=== PATIENT | female | born 1960 | race Caucasian/White ===

== ENCOUNTER → 2019-01-15 12:58 | Outpatient (CLI) | payer OTHER, SELFPAY ==
--- NOTE | 2019-01-15 12:59 | DI.RAD.S_ITS ---
PROCEDURE: XR CERVICAL SPINE 4V OR 5V INDICATIONS: Cervical spondylosis TECHNIQUE: 5 views of the cervical spine acquired. COMPARISON: None. FINDINGS: Bones: No fractures or dislocations to the T1 level. Mild disc height loss and degenerative endplate spurring at C5-6 level, and to a lesser extent at C6-7. Oblique images demonstrate mild bony foraminal narrowing due to uncovertebral joint hypertrophy and facet arthropathy on the left at C5-6 level. Soft tissues: No prevertebral soft tissue swelling. IMPRESSION: Degenerative endplate changes causing bony foraminal narrowing at the C5-6 level. Dictated by: Ruth Mcmillan M.D. on 01/15/2019 at 15:08 Approved by: Ruth Mcmillan M.D. on 01/15/2019 at 15:11
--- NOTE | 2019-01-15 12:59 | DI.RAD.S_ITS ---
PROCEDURE: XR SHOULDER RT MIN 2V INDICATIONS: Shoulder DJD TECHNIQUE: 3 views of the shoulder were acquired. COMPARISON: None. FINDINGS: Bones: No fractures or dislocations. No suspicious bony lesions. Mild degenerative sclerosis along the caudal glenoid margin. The minor a.c. joint hypertrophy and trace dystrophic calcification. Visualized ribs appear intact. Soft tissues: No suspicious soft tissue calcifications. IMPRESSION: Mild degenerative changes in the glenohumeral joint and a.c. joint. Dictated by: Ruth Mcmillan M.D. on 01/15/2019 at 15:06 Approved by: Ruth Mcmillan M.D. on 01/15/2019 at 15:08
--- NOTE | 2019-01-15 12:59 | DI.RAD.S_ITS ---
PROCEDURE: XR HIP W PEL IF DONE RT 2V INDICATIONS: hip djd TECHNIQUE: AP pelvis with lateral view(s) of the right hip(s). COMPARISON: [facility], CR, HIP COMP MIN 2VW (RT), 11/26/2014, 16:22. [facility], CR, PELVIS WITH BILATERAL HIPS, 05/18/2013, 14:23. [facility], CR, CHEST 2VW, 11/13/2012, 4:28 PM. FINDINGS: Bones: No fractures or dislocations. There has been interval worsening of degenerative facet joint osteoarthritis bilaterally, very severe on the right and there is severe with [id number] articulation on the left. The distortion of the right femoral head and overlying acetabulum also has progressed with mild flattening in the area of maximal articulation at the right hip joint. A fracture is not found the prominent osteophytic spurring is noted along the hip joint margins, obscuring clear visualization of portions of the right femoral head and neck. Pelvic ring appears intact. No suspicious bony lesions. Soft tissues: The visualized bowel gas pattern is normal. No suspicious soft tissue calcifications. IMPRESSION: Hip joint osteoarthritis previously had been quite severe bilaterally but now has further progressed from the comparison in 2013. It is now very severe on the right and near severe on the left and bilaterally there is [id number] articulation. Dictated by: Elliot Leon M.D. on 01/15/2019 at 14:37 Approved by: Elliot Leon M.D. on 01/15/2019 at 14:40
== END ==
PROVIDERS: Family Provider Family Medicine; PCP Family Medicine; Visit Provider Physical Medicine & Rehabilitation
DX: M16.0 Bilateral primary osteoarthritis of hip (principal); M19.011 Primary osteoarthritis, right shoulder; M48.02 Spinal stenosis, cervical region
CPT/HCPCS: 72050; 73030; 73502

== ENCOUNTER → 2019-08-15 14:56 | Outpatient (CLI) | payer OTHER, SELFPAY ==
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
== END ==
PROVIDERS: Family Provider Family Medicine; PCP Family Medicine; Visit Provider Physical Medicine & Rehabilitation
DX: M48.02 Spinal stenosis, cervical region (principal); M48.061 Spinal stenosis, lumbar region without neurogenic claudication; M16.11 Unilateral primary osteoarthritis, right hip; M50.322 Other cervical disc degeneration at C5-C6 level; M41.85 Other forms of scoliosis, thoracolumbar region; M51.36 Other intervertebral disc degeneration, lumbar region; M47.816 Spondylosis without myelopathy or radiculopathy, lumbar region
CPT/HCPCS: 72050; 72110

== ENCOUNTER → 2019-09-24 17:06 | Outpatient (CLI) | payer OTHER, SELFPAY ==
--- NOTE | 2019-09-24 17:08 | DI.MRI.S_ITS ---
PROCEDURE: MR CERVICAL SPINE WO CON INDICATIONS: Cervical radiculopathy TECHNIQUE: Noncontrast sagittal T1 spin echo and T2 fast spin echo, sagittal STIR, foraminal oblique sagittal T2 fast spin echo, and axial gradient echo or T2 fast spin echo through the cervical spine. COMPARISON: [facility], CR, XR CERVICAL SPINE 4V OR 5V, 08/15/2019, 15:01. [facility], MR, C-SPINE WITHOUT CONTRAST, 06/08/2017, 12:58. FINDINGS: Image quality: Excellent. Alignment and Curvature: There is an appearance of overall cervical straightening. There is trace anterolisthesis of C3 on C4, T1 on T2, trace retrolisthesis of C6 on C7. Bone Marrow: Marrow demonstrates normal overall signal. Spinal Cord: Visualized spinal cord has normal size and signal. No cerebellar tonsillar herniation. Paraspinous Soft Tissues: No paravertebral masses. Prevertebral soft tissues are normal in thickness. Prominent bilateral maxillary sinus mucosal thickening is present. Discs: Multilevel moderate desiccation is present throughout the cervical spine most notable at C6-7. C2-C3: Minimal disc bulge without spinal stenosis or foraminal narrowing. No interval change. C3-C4: Minimal disc bulge without spinal stenosis. Mild right foraminal narrowing with uncovertebral hypertrophy. No interval change. C4-C5: Mild disc bulge with trace posterior central protrusion. Mild spinal stenosis with effacement of the anterior thecal sac. Minimal left foraminal narrowing. No interval change. C5-C6: Mild disc bulge with mild to moderate spinal stenosis. Moderate left and mild right foraminal narrowing with uncovertebral hypertrophy. Slight interval progression is noted on the left. C6-C7: Mild disc bulge with mild to moderate spinal stenosis. Right and left paracentral disc osteophyte complexes are present without interval change. Mild to moderate left and mild right foraminal narrowing with uncovertebral hypertrophy. No interval change. C7-T1: No disc bulge or spinal stenosis. Minimal right foraminal narrowing, slightly progressive. IMPRESSION: 1. Multilevel degenerative changes there is a small interval progression as above. 2. Multilevel foraminal narrowing is present most notable at C5-6 secondary to uncovertebral arthropathy. 3. Multilevel spinal stenosis most prominent at C5-6 and C6-7 secondary to disc bulge with contributing effect of retrolisthesis. Dictated by: Sendy Orona M.D. on 09/25/2019 at 8:32 Approved by: Sendy Orona M.D. on 09/25/2019 at 8:39
--- NOTE | 2019-09-24 17:08 | DI.MRI.S_ITS ---
PROCEDURE: MR LUMBAR SPINE WO CON INDICATIONS: Low back pain TECHNIQUE: Noncontrast sagittal T1 spin echo and T2 fast echo, sagittal STIR, axial T1 and T2 fast spin echo through the lumbar spine. In cases with scoliosis, additional coronal T2 fast spin echo may be performed. COMPARISON: [facility], MR, L-SPINE W&WO CONTRAST, 05/18/2013, 13:58. [facility], CR, XR LUMBAR SPINE MIN 4V, 08/15/2019, 15:01. FINDINGS: Image quality: Excellent. Alignment and Curvature: Whole there is grade 1 retrolisthesis of L1 on L2, L2 on L3, L3 on L4, trace retrolisthesis of L4 on L5 and L5 on S1, overall unchanged. Bone Marrow: Marrow is of normal overall signal. Moderate reactive endplate changes are present at L1-L2, mild L5-S1 and minimal throughout the remainder of the lumbar spine. Her the reactive endplate changes are surrounding Schmorl's nodes along the inferior endplate of L1 and L5. No acute vertebral body compression fractures. Spinal Cord: Conus medullaris terminates at the L1 level. Visualized cord demonstrates normal signal and size. Paraspinous Soft Tissues: No paravertebral masses. Liver is enlarged. Discs: Moderate to severe desiccation is present throughout the lumbar spine. L1-L2: Mild disc bulge with mild spinal stenosis. Moderate right and mild left foraminal narrowing with facet and ligamentum flavum hypertrophy. Mild interval progression. L2-L3: Mild disc bulge with left posterior paracentral extrusion, new compared to prior exam. There is compromise of the left lateral recess. There is overall mild to moderate spinal stenosis. Mild right and moderate left foraminal narrowing, progressive compared to prior exam. Facet and ligamentum flavum hypertrophy are present. L3-L4: Mild disc bulge with moderate to severe spinal stenosis. The moderate bilateral foraminal narrowing with facet and ligamentum flavum hypertrophy. Mild interval progression is noted. L4-L5: Mild disc bulge with severe spinal stenosis and canal compression. There is severe left and moderate right foraminal narrowing with flattening on the left, progressive compared to prior exam. Facet and ligamentum flavum hypertrophy are present. L5-S1: Mild disc bulge including a right lateral/foraminal component. There is moderate to severe bilateral foraminal narrowing with facet and ligamentum flavum hypertrophy. Interval progression is noted. Anterior lateral right facet joint cyst is present without compromise of the canal or exiting nerve root. IMPRESSION: 1. Multilevel degenerative changes demonstrating interval progression as noted above. 2. Multiple disc bulges including a new extrusion at L2-3. 3. Multilevel spinal stenosis most severe at L4-5 secondary to disc bulge with contributing factor facet/ligament flavum arthropathy. 4. Multilevel foraminal narrowings as severe at L4-5 and L5-S1 secondary to facet arthropathy. Dictated by: Sendy Orona M.D. on 09/25/2019 at 8:39 Approved by: Sendy Orona M.D. on 09/25/2019 at 10:19
== END ==
PROVIDERS: Family Provider Family Medicine; PCP Family Medicine; Visit Provider Physical Medicine & Rehabilitation
DX: M47.22 Other spondylosis with radiculopathy, cervical region (principal); M48.02 Spinal stenosis, cervical region; M50.122 Cervical disc disorder at C5-C6 level with radiculopathy; M47.816 Spondylosis without myelopathy or radiculopathy, lumbar region; M47.817 Spondylosis without myelopathy or radiculopathy, lumbosacral region; M51.26 Other intervertebral disc displacement, lumbar region; M48.061 Spinal stenosis, lumbar region without neurogenic claudication; M48.07 Spinal stenosis, lumbosacral region; M16.11 Unilateral primary osteoarthritis, right hip
CPT/HCPCS: 72141; 72148